=== PATIENT | female | born 1970 | race Caucasian/White ===

== ENCOUNTER 2018-03-29 18:54 | Emergency (ER) | payer OTHER ==
[2018-03-29] MEDS ORDERED: KETOROLAC 30 MG/ML INJ ONE (19:47)
[2018-03-29] MEDS ORDERED: NA CHLORIDE 0.9% 1,000 ML ONE ×2 (19:47→22:29)
[2018-03-29 20:47] LABS: Absolute Lymphocytes (CBC) 3.8 K/uL (0.7-4.9); Absolute Monocytes 0.4 K/uL (0.1-1.3); Absolute Neutrophil 3.6 K/uL (1.8-8.0); Basophils % 0.6 % (0-1.3); Eosinophils % 1.9 % (0-4.4); Hematocrit 37.1 % (36.0-45.0); Lymphocytes % 47.5 % (15.3-44.8); Monocytes % 5.3 % (3.3-12.3); RBC Red Blood Cell Count 3.94 M/uL (3.86-4.86)
[2018-03-29 21:04] LABS: ALT/SGPT 15 U/L (12-78); AST/SGOT 15 U/L (15-37); Albumin 3.6 g/dL (3.4-5.0); Alkaline Phosphatase 62 U/L (45-117); Amylase Level 184 U/L (25-115); BUN Blood Urea Nitrogen 12 mg/dL (7-18); Bicarbonate 31 mmol/L (21-32); Bilirubin Direct < 0.1 mg/dL (0-0.2); Bilirubin Total 0.2 mg/dL (0.2-1.0); Glucose Level 84 mg/dL (74-106); Lipase 144 U/L (73-393); Potassium 3.9 mmol/L (3.5-5.1); Sodium Level 142 mmol/L (136-145)
[2018-03-29 23:40] LABS: Urine Blood 2+ (NEG); Urine Glucose NEGATIVE (NEG); Urine Protein NEGATIVE (NEG); Urine Specific Gravity 1.025 (1.005-1.030); Urine pH 5.5 (5.0-7.0)
[2018-03-29 23:43] LABS: Urine Bacteria >50 /HPF (<20); Urine Culture Reflex Order REFLEXED; Urine RBC NONE SEEN /HPF (NONE SEEN)
[2018-03-30] MEDS ORDERED: Levofloxacin500mg IV 500 MG/100 ML BAG IV ONE
[2018-03-30] MEDS ORDERED: ONDANSETRON 4 MG/2 ML VIAL ONE (01:47)
[2018-03-30] MEDS ORDERED: MORPHINE 4 MG/ML SYR ONE (01:47)
--- NOTE | 2018-03-30 02:47 | ER ---
Nurse's Notes [facility] Name: Bharti Sterling Age: 47 yrs Sex: Female : 1970 Arrival Date: 03/29/2018 Time: 18:56 Bed 16 Private MD: None, None Diagnosis: pyelonephritis;Congenital renal cyst, unspecified Presentation: 03/29 19:02 Presenting complaint: Patient states: right lower back pain with decreased urination. ak1 pt stated urine with foul odor. pt stated s/s started yesterday. Transition of care: patient was not received from another setting of care. Onset of symptoms was March 28, 2018. Risk Assessment: Do you want to hurt yourself or someone else? Patient reports no desire to harm self or others. Initial Sepsis Screen: Does the patient meet any 2 criteria? No. Patient's initial sepsis screen is negative. Does the patient have a suspected source of infection? No. Patient's initial sepsis screen is negative. Care prior to arrival: None. 19:02 Method Of Arrival: Ambulatory ak1 19:02 Acuity: FRANDY 4 ak1 Triage Assessment: 19:07 General: Appears in no apparent distress. Behavior is cooperative. Pain: Complains of ak1 pain in right mid back and right low back. EENT: No signs and/or symptoms were reported regarding the EENT system. Neuro: No deficits noted. Cardiovascular: No deficits noted. Respiratory: No deficits noted. GI: No signs and/or symptoms were reported involving the gastrointestinal system. : Reports inability to void, since yesterday. Derm: No signs and/or symptoms reported regarding the dermatologic system. Musculoskeletal: Range of motion: intact in all extremities, pt c/o pain to right back, right flank. 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 - Social history:: Smoking status: Patient uses tobacco products, smokes one-half pack cigarettes per day. - Ebola Screening: : No symptoms or risks identified at this time. Screenin:08 Abuse screen: Denies threats or abuse. Denies injuries from another. Nutritional ak1 screening: No deficits noted. Tuberculosis screening: No symptoms or risk factors identified. Fall Risk None identified. Assessment: 19:15 General: Appears in no apparent distress. uncomfortable, ill, well groomed, well bs1 developed, well nourished, Behavior is calm, cooperative, appropriate for age. Pain: Complains of pain in right flank. 19:15 Neuro: Level of Consciousness is awake, alert, obeys commands, Oriented to person, bs1 place, time, situation, Appropriate for age. Cardiovascular: Denies chest pain, shortness of breath, Heart tones S1 S2 present Capillary refill < 3 seconds Patient's skin is warm and dry. Respiratory: Airway is patent Trachea midline Respiratory effort is even, unlabored, Respiratory pattern is regular, symmetrical, Breath sounds are clear bilaterally. GI: No signs and/or symptoms were reported involving the gastrointestinal system. : Reports inability to void, since yesterday. : Reports pain in right flank(s). EENT: No signs and/or symptoms were reported regarding the EENT system. Derm: Skin is intact, Skin is pink, warm \T\ dry. normal. Musculoskeletal: Circulation, motion, and sensation intact. Capillary refill < 3 seconds. 22:00 Reassessment: Verbal order per Dr Aalnis to do Bladder scan/Straight cath due to bs1 patient unable to void. Bladder scan 255 in bladder, straight cath- urine output 400. Informed Dr Alanis, gave order to give another 1L of NS bolus. 23:00 Reassessment: Patient appears in no apparent distress at this time. Patient and/or bs1 family updated on plan of care and expected duration. Pain level reassessed. Patient is alert, oriented x 3, equal unlabored respirations, skin warm/dry/pink. Pending urine micro. Informed patient of POC. No further needs at this time. at bedside. 03/30 00:04 Reassessment: Informed patient and that Dr Alanis ordered a CT stone protocol. bs1 Called CT at ext [phone] per patient/ request to ask how long it will take before the patient gets scanned. Patient has 1 more patient ahead of her and she will be next. 01:42 Reassessment: Patient c/o pain in right flank, informed Dr Alanis. Verbal order to give bs1 morphine 2mg IV, zofran 4mg IV x1 now. 02:54 Reassessment: Patient/family state understanding of POC/discharge instructions. bs1 Vital Signs: 03/29 19:07 BP 111 / 79; Pulse 58; Resp 16; Temp 98; Pulse Ox 98% on R/A; Weight 74.84 kg (R); ak1 Height 5 ft. 9 in. (175.26 cm) (R); Pain 7/10; 20:30 BP 123 / 90; Pulse 59; Resp 16; Pulse Ox 99% on R/A; bs1 21:30 BP 92 / 59; Pulse 55; Resp 16; Pulse Ox 99% on R/A; bs1 22:45 BP 121 / 82; Pulse 62; Resp 16 S; Pulse Ox 98% on R/A; bs1 23:45 BP 122 / 72; Pulse 55; Resp 16; Pulse Ox 99% on R/A; bs1 03/30 00:45 BP 125 / 74; Pulse 54; Resp 17; Pulse Ox 99% on R/A; bs1 01:45 BP 128 / 80; Pulse 61; Resp 16; Temp 97.9(O); Pulse Ox 100% on R/A; Pain 0/10; bs1 02:45 BP 121 / 72; Pulse 60; Resp 16; Temp 97.8(O); Pulse Ox 99% on R/A; Pain 0/10; bs1 03/29 19:07 Body Mass Index 24.37 (74.84 kg, 175.26 cm) ak1 ED Course: 03/29 18:56 Patient arrived in ED. mr 18:57 None, None is Private Physician. mr 19:05 Triage completed. ak1 19:07 Arm band placed on Patient placed in an exam room, Patient notified of wait time. ak1 19:08 Patient has correct armband on for positive identification. ak1 19:14 Francisco Alanis MD is Attending Physician. tw4 19:38 Sheila Rico, CIARAN is Primary Nurse. bs1 20:00 Inserted saline lock: 20 gauge in right antecubital area, using aseptic technique. bs1 Blood collected. 21:49 Bladder scan completed. 255. bs1 21:49 Straight cath inserted, using sterile technique, Specimen obtained. Patient tolerated bs1 well. 15F. 03/30 00:[address] via stretcher. kw1 01:01 CT Stone Protocol In Process Unspecified. EDMS 01:03 CT completed. Patient tolerated procedure well. Patient moved back from CT. kw1 02:53 No provider procedures requiring assistance completed. IV discontinued, bleeding bs1 controlled, No redness/swelling at site. Pressure dressing applied. Administered Medications: 03/29 20:18 Drug: TORadol 30 mg Route: IVP; Site: right antecubital; bs1 22:09 Follow up: Response: No adverse reaction bs1 20:21 Drug: NS 0.9% 1000 ml Route: IV; Rate: 1 bolus; Site: right antecubital; bs1 22:09 Follow up: IV Status: Completed infusion bs1 22:27 Drug: NS 0.9% 1000 ml Route: IV; Rate: 1 bolus; Site: right antecubital; bs1 03/30 02:58 Follow up: IV Status: Completed infusion bs1 00:00 Drug: LevaQUIN 500 mg Volume: 100 ml; Route: IVPB; Infused Over: 60 mins; Site: right bs1 antecubital; 02:58 Follow up: IV Status: Completed infusion bs1 01:49 Drug: morphine 2 mg Route: IVP; Site: right antecubital; bs1 02:57 Follow up: Response: No adverse reaction bs1 01:49 Drug: Zofran 4 mg Route: IVP; Site: right antecubital; bs1 02:57 Follow up: Response: No adverse reaction bs1 Outcome: 02:46 Discharge ordered by . tw4 02:54 Discharged to home ambulatory, with significant other. bs1 02:54 Condition: stable 02:54 Discharge instructions given to patient, Instructed on discharge instructions, follow up and referral plans. medication usage, Demonstrated understanding of instructions, follow-up care, medications, Prescriptions given X 3. 02:58 Patient left the ED. bs1 Addendum: 04/03/2018 17:28 Addendum: Culture Results: Positive urine culture. No further action required. Bacteria i w sensitive to prescribed antibiotic. Signatures: Dispatcher [employer] [facility] Edelmira Powell Irene, RN RN iw Julienne Nice RN RN ak1 Mckenna Wheeler kw1 Sheila Rico, RN RN bs1 Francisco Alanis MD MD tw4 Corrections: (The following items were deleted from the chart) 03/29 22:14 21:49 Bladder scan completed. 255 bs1 bs1
--- NOTE | 2018-03-30 02:47 | EDPHYS ---
Physician Documentation [facility] Name: Bharti Sterling Age: 47 yrs Sex: Female : 1970 Arrival Date: 03/29/2018 Time: 18:56 Bed 16 Private MD: None, None ED Physician Francisco Alanis HPI: 03/29 20:44 This 47 yrs old Female presents to ER via Ambulatory with complaints of tw4 Urinary Problem, Back Pain, Trouble Walking. 20:44 The patient presents with pain that is acute. The symptoms are located in the low back. tw4 Onset: The symptoms/episode began/occurred today. The pain does not radiate. The problem was sustained without known cause. Modifying factors: The patient symptoms are alleviated by nothing, the patient symptoms are aggravated by any movement. Severity of symptoms: At their worst the symptoms were moderate, in the emergency department the symptoms are unchanged. Pertinent positives: dysuria, urinary retention, The patient has not experienced similar symptoms in the past. 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 - Social history:: Smoking status: Patient uses tobacco products, smokes one-half pack cigarettes per day. - Ebola Screening: : No symptoms or risks identified at this time. ROS: 20:44 Constitutional: Negative for fever, chills, and weight loss, Eyes: Negative for injury, tw4 pain, redness, and discharge, Cardiovascular: Negative for chest pain, palpitations, and edema, Respiratory: Negative for shortness of breath, cough, wheezing, and pleuritic chest pain, Abdomen/GI: Negative for abdominal pain, nausea, vomiting, diarrhea, and constipation. 20:44 MS/Extremity: Negative for injury and deformity, Skin: Negative for injury, rash, and discoloration, Neuro: Negative for headache, weakness, numbness, tingling, and seizure. 20:44 Back: Positive for pain with movement, flank pain, on the right. Exam: 20:44 Constitutional: This is a well developed, well nourished patient who is awake, alert, tw4 and in no acute distress. Head/Face: Normocephalic, atraumatic. Chest/axilla: Normal chest wall appearance and motion. Nontender with no deformity. No lesions are appreciated. Cardiovascular: Regular rate and rhythm with a normal S1 and S2. No gallops, murmurs, or rubs. Normal PMI, no JVD. No pulse deficits. Respiratory: Lungs have equal breath sounds bilaterally, clear to auscultation and percussion. No rales, rhonchi or wheezes noted. No increased work of breathing, no retractions or nasal flaring. Abdomen/GI: Soft, non-tender, with normal bowel sounds. No distension or tympany. No guarding or rebound. No evidence of tenderness throughout. 20:44 Back: pain, is absent, ROM is normal, CVA tenderness, is noted on the right. 20:44 MS/ Extremity: Pulses equal, no cyanosis. Neurovascular intact. Full, normal range tw4 of motion. Neuro: Awake and alert, GCS 15, oriented to person, place, time, and situation. Cranial nerves II-XII grossly intact. Motor strength 5/5 in all extremities. Sensory grossly intact. Cerebellar exam normal. Normal gait. Psych: Awake, alert, with orientation to person, place and time. Behavior, mood, and affect are within normal limits. Vital Signs: 19:07 BP 111 / 79; Pulse 58; Resp 16; Temp 98; Pulse Ox 98% on R/A; Weight 74.84 kg (R); ak1 Height 5 ft. 9 in. (175.26 cm) (R); Pain 7/10; 20:30 BP 123 / 90; Pulse 59; Resp 16; Pulse Ox 99% on R/A; bs1 21:30 BP 92 / 59; Pulse 55; Resp 16; Pulse Ox 99% on R/A; bs1 22:45 BP 121 / 82; Pulse 62; Resp 16 S; Pulse Ox 98% on R/A; bs1 23:45 BP 122 / 72; Pulse 55; Resp 16; Pulse Ox 99% on R/A; bs1 03/30 00:45 BP 125 / 74; Pulse 54; Resp 17; Pulse Ox 99% on R/A; bs1 01:45 BP 128 / 80; Pulse 61; Resp 16; Temp 97.9(O); Pulse Ox 100% on R/A; Pain 0/10; bs1 02:45 BP 121 / 72; Pulse 60; Resp 16; Temp 97.8(O); Pulse Ox 99% on R/A; Pain 0/10; bs1 03/29 19:07 Body Mass Index 24.37 (74.84 kg, 175.26 cm) ak1 MDM: 03/29 19:14 Patient medically screened. tw4 03/30 02:48 Data reviewed: vital signs, nurses notes. Data interpreted: Pulse oximetry: tw4 Interpretation: normal. Counseling: I had a detailed discussion with the patient and/or guardian regarding: the historical points, exam findings, and any diagnostic results supporting the discharge/admit diagnosis. Response to treatment: the patient's symptoms have markedly improved after treatment. Special discussion: Based on the patient's Hx, exam, and Dx evaluation, there is no indication for emergent surgery or inpatient Tx. It is understood by the patient/guardian that if the Sx's persist or worsen they need to return immediately for re-evaluation. I discussed with the patient/guardian in detail that at this point there is no indication for admission to the hospital. It is understood, however, that if the symptoms persist or worsen the patient needs to return immediately for re-evaluation. 03/29 19:32 Order name: Amylase, Serum; Complete Time: 21:17 03/29 19:32 Order name: Basic Metabolic Panel; Complete Time: 21:17 [facility] 03/29 19:32 Order name: CBC with Diff; Complete Time: 21:17 03/29 19:32 Order name: Creatinine for Radiology; Complete Time: 21:17 03/29 19:32 Order name: Hepatic Function; Complete Time: 21:17 03/29 19:32 Order name: Lipase; Complete Time: 21:17 03/29 19:32 Order name: Urine Microscopic Only; Complete Time: 23:47 03/29 21:49 Order name: Urine Dipstick--Ancillary (enter results); Complete Time: 23:47 [facility] 03/29 21:49 Order name: Urine --Ancillary (enter results); Complete Time: 23:47 2 03/29 23:44 Order name: Urine Culture EDWI 03/29 23:49 Order name: CT Stone Protocol tw4 03/29 19:32 Order name: IV Saline Lock; Complete Time: 20:21 tw4 03/29 19:32 Order name: Labs collected and sent; Complete Time: 20:21 tw4 03/29 19:32 Order name: Urine Dipstick-Ancillary (obtain specimen); Complete Time: 22:23 tw4 03/29 22:10 Order name: Straight Cath; Complete Time: 22:10 bs1 03/29 22:10 Order name: Bladder Scanner; Complete Time: 22:10 bs Administered Medications: 03/29 20:18 Drug: TORadol 30 mg Route: IVP; Site: right antecubital; bs1 22:09 Follow up: Response: No adverse reaction bs1 20:21 Drug: NS 0.9% 1000 ml Route: IV; Rate: 1 bolus; Site: right antecubital; bs1 22:09 Follow up: IV Status: Completed infusion bs1 22:27 Drug: NS 0.9% 1000 ml Route: IV; Rate: 1 bolus; Site: right antecubital; bs1 03/30 02:58 Follow up: IV Status: Completed infusion bs1 00:00 Drug: LevaQUIN 500 mg Volume: 100 ml; Route: IVPB; Infused Over: 60 mins; Site: right bs1 antecubital; 02:58 Follow up: IV Status: Completed infusion bs1 01:49 Drug: morphine 2 mg Route: IVP; Site: right antecubital; bs1 02:57 Follow up: Response: No adverse reaction bs1 01:49 Drug: Zofran 4 mg Route: IVP; Site: right antecubital; bs1 02:57 Follow up: Response: No adverse reaction bs1 Disposition: 03/30/18 02:46 Discharged to Home. Impression: pyelonephritis, Congenital renal cyst, unspecified. - Condition is Stable. - Discharge Instructions: Pyelonephritis, Adult, [id number], Renal Mass. - Prescriptions for Ibuprofen 800 mg Oral Tablet - take 1 tablet by ORAL route every 8 hours As needed take with food; 30 tablet. Levaquin 500 mg Oral Tablet - take 1 tablet by ORAL route once daily for 7 days; 7 tablet. Tylenol- Codeine #3 300-30 mg Oral Tablet - take 2 tablets by ORAL route every 6 hours As needed; 20 tablet. - Work release form, Medication Reconciliation Form, Thank You Letter, Antibiotic Education, Prescription Opioid Use form. - Follow up: Private Physician; When: Upon discharge from the Emergency Department; Reason: Further diagnostic work-up, Recheck today's complaints, Continuance of care. - Problem is new. - Symptoms have improved. Signatures: Dispatcher [employer] EDJulienne Randle, RN RN ak1 Sheila Rico RN RN bs1 Francisco Alanis MD MD tw4 Corrections: (The following items were deleted from the chart) 02:58 02:46 03/30/2018 02:46 Discharged to Home. Impression: pyelonephritis; Congenital renal bs1 cyst, unspecified. Condition is Stable. Forms are Work release form, Medication Reconciliation Form, Thank You Letter, Antibiotic Education, Prescription Opioid Use. Follow up: Private Physician; When: Upon discharge from the Emergency Department; Reason: Further diagnostic work-up, Recheck today's complaints, Continuance of care. Problem is new. Symptoms have improved. tw4
--- NOTE | 2018-03-30 09:19 | RAD REPORT ---
EXAM DESCRIPTION: CT - Stone Protocol - 03/30/2018 4:05 am CLINICAL HISTORY: flank<Reason For Exam>flank Right flank pain A preliminary report was provided at the time of the study and reviewed prior to final report. COMPARISON: No comparisons<Comparisons> TECHNIQUE: Axial 5 mm thick images were obtained without oral or IV contrast. The [id number] span s the entirety of the system partially obscuring uppermost abdomen and lung bases. All CT scans are performed using dose optimization technique as appropriate and may include automated exposure control or mA/KV adjustment according to patient size. FINDINGS: No hydronephrosis is present and no obstructing ureteral calculi. No suspicious renal mass es. Isodense masses and pyelonephritis are not excluded on a stone protocol CT scan. Urinary bladder is contracted limiting detail. No bladder calculus. Uterus is absent. No ovarian abnormality. A 9 mil limeter round hyperdense focus upper pole right kidney is believed to be a high protein content cyst. There is a 3.5 centimeter round low-density mass medial mid left kidney that is believed to be an in cidental cyst. Imaged portions of the liver, spleen and pancreas show no suspicious findings on non-contrast imaging . Patient has a normal variant Reidel lobe configuration to the right lobe of the liver. Gallbladder is absent or tightly contracted. No biliary tree dilatation. No significant adrenal finding. No acute bowel finding. No appendicitis. Minimal diverticulosis is present. Gastric bypass surgical c hanges noted. No hernia, mass or bulky lymphadenopathy noted. No free air, free fluid or inflammatory stranding. No significant bony abnormality. IMPRESSION: No hydronephrosis, obstructing calculus or other acute finding. Overall, no acute or suspicious findings noted. Nonacute findings are detailed in the body of the rep ort. Isodense masses and pyelonephritis are not excluded on stone protocol technique.
== END 2018-03-30 02:58 | disposition home or self-care (01) ==
LOC: ER 18:54
DX: N12 Tubulo-interstitial nephritis, not specified as acute or chronic (principal); Q61.00 Congenital renal cyst, unspecified; F17.210 Nicotine dependence, cigarettes, uncomplicated; E03.9 Hypothyroidism, unspecified; Z88.1 Allergy status to other antibiotic agents
CPT/HCPCS: 36415; 51702; 74176; 76377; 80048; 80076; 81003; 81015; 81025; 82150; 83690; 85025; 87077; 87086; 87088; 87186; 96361; 96365; 96366; 96375; 99284; J2405; J7030